=== PATIENT | female | born 1960 | race African-American/Black ===

== ENCOUNTER 2024-12-15 09:47 | Inpatient (IN) | payer BC ==
[~2024-12-15] VITALS: Ht 165.1 cm; Wt 54.1 kg
--- NOTE | 2024-12-15 13:20 | Physician Documentation ---
History of Present Illness General Chief Complaint: Abdominal Pain Stated Complaint: MULTIPLE MED COMPLAINTS Time Seen by MD: 13:20 Mode of Arrival: POV Medication Reconciliation Allergies: Coded Allergies: No Known Allergies (Unverified , 12/15/24) Physical Exam Physical Exam Vital Signs: Temperature: 97.6, Source: Temporal, Heart Rate: 62, Respiratory Rate: 18, BP: 111/65, Pulse Oximetry: 98, Weight: 54.090 Progress Results/Orders Results/Orders Medications Received in ER Medications (Trade) Dose Ordered Sig/Cristopher Route PRN Reason Start Time Stop Time Status Last Admin Dose Admin (0.9% sodium chloride (NS) 1000ml IV soln) 2,000 ml ONCE ONCE IVB 12/15/24 14:00 12/15/24 14:01 DC 12/15/24 14:43 2,000 ML (Reglan inj) 5 mg ONCE ONCE IV 12/15/24 14:00 12/15/24 14:01 DC 12/15/24 14:42 5 MG (Benadryl inj.) 25 mg ONCE ONCE IV 12/15/24 14:00 12/15/24 14:01 DC 12/15/24 14:43 25 MG Acetaminophen 100 ml @ 400 mls/hr ONCE ONCE IV 12/15/24 14:00 12/15/24 14:14 DC 12/15/24 14:43 400 MLS/HR Sodium Chloride 1,000 ml @ 100 mls/hr Q10H IV 12/15/24 15:50 12/15/24 16:33 100 MLS/HR (K-DUR tablet) 40 meq Q4H PRN PO Potassium 3.0 or less 12/15/24 15:50 12/18/24 15:49 12/15/24 16:32 40 MEQ Vital Signs 12/15/24 12/15/24 12/15/24 10:07 12:57 13:33 Temp 97.6 Pulse 62 67 Resp 18 16 B/P (MAP) 111/65 164/90 (114) Pulse Ox 98 100 O2 Flow Rate 0 Laboratory Tests Test 12/15/24 12:58 12/15/24 13:16 12/15/24 14:36 Urine Specimen Description Cln catch midstream Urine Color Yellow Urine Clarity Clear Urine pH 6.0 Urine Specific [place] 1.015 Urine Protein Trace Urine Glucose (UA) Negative Urine Ketones Negative Urine Occult Blood Negative Urine Nitrite Negative Urine Bilirubin Negative Urine Urobilinogen 0.2 Urine Leukocyte Esterase Negative Urine RBC 0-2 Urine WBC 0-4 Urine Squamous Epithelial Cells Few Urine Bacteria None seen Urine Mucus Few Urine Culture Indicated Not ind Volume Urine Centrifuged 10 ml Urine HCG, Qualitative Negative Urine Comment White Blood Count 11.4 H Red Blood Count 4.12 L Hemoglobin 11.8 L Hematocrit 36.1 Mean Corpuscular Volume 87.5 Mean Corpuscular Hemoglobin 28.7 Mean Corpuscular Hemoglobin Concent 32.8 L Red Cell Distribution Width 13.7 Platelet Count 281 Mean Platelet Volume 9.1 Neutrophils (%) (Auto) 79.7 H Lymphocytes (%) (Auto) 11.3 L Monocytes (%) (Auto) 8.8 Eosinophils (%) (Auto) 0.1 Basophils (%) (Auto) 0.1 Neutrophils # (Auto) 9.1 H Lymphocytes # (Auto) 1.3 Monocytes # (Auto) 1.0 H Eosinophils # (Auto) 0.0 Basophils # (Auto) 0.0 CBC Comment Sodium Level 138 Potassium Level 2.8 *L Chloride Level 101 Carbon Dioxide Level 25.5 Anion Gap 12 Blood Urea Nitrogen 25 H Creatinine 1.52 H Estimated GFR/1.73 m2 35 BUN/Creatinine Ratio 16.4 Glucose Level 98 Hemoglobin A1c 5.3 Lactic Acid Level 0.9 Calcium Level 9.4 Total Bilirubin 0.5 Aspartate Amino Transf (AST/SGOT) 80 H Alanine Aminotransferase (ALT/SGPT) 161 H Alkaline Phosphatase 88 Pro-B-Type Natriuretic Peptide 529 H Total Protein 9.3 H Albumin 3.5 Globulin 5.8 H Albumin/Globulin Ratio 0.6 L Lipase 15 L Chemistry Comments Procalcitonin 0.19 Departure Referrals: NO PRIMARY CARE PROVIDER (PCP) BRIA FOWLER MD Dec 15, 2024 13:20 ESTEPHANIA HOLLINGSWORTH Dec 15, 2024 17:27
[2024-12-15 13:42] LABS: MEAN PLATELET VOLUME 9.1 FL (7.4-10.4); RED CELL DISTRIBUTION WIDTH 13.7 % (11.5-14.5)
[2024-12-15 13:57] LABS: CREATININE 1.52 MG/DL (0.40-0.90); TOTAL CARBON DIOXIDE 25.5 MMOL/L (24-32); eCRCL 33 ML/MIN; eGFR 35 ML/MIN
[2024-12-15 14:02] LABS: URINE HCG NEGATIVE (NEG)
[2024-12-15 14:07] LABS: LEUKOCYTE ESTERASE ,URINE NEGATIVE (Neg); NITRITES, URINE NEGATIVE (Neg); OCCULT BLOOD,URINE NEGATIVE (Neg)
[2024-12-15 14:14] LABS: UA COLLECTION TYPE CLN CATCH MIDSTREAM
[2024-12-15 14:16] LABS: MUCUS STRANDS FEW /LPF (Neg); SQUAMOUS EPITHELIAL CELL,UR FEW /LPF (FEW)
--- NOTE | 2024-12-15 14:20 | Physician Documentation ---
History of Present Illness Chief Complaint: Abdominal Pain Stated Complaint: MULTIPLE MED COMPLAINTS Mode of Arrival: POV HPI 64 year old female presents to ER with abdominal pain for the past 2 weeks. Pain located in the RUQ, colicky, waxes and wanes, exacerbates with oral intake, as sociated with nauseal. She has poor oral intake for the past 2 days. She also reports some chills. No SOB, Chest pain or shortness of breath. Medication Reconciliation Allergies: Coded Allergies: No Known Allergies (Unverified , 12/15/24) Review of Systems All Other Systems at this time: Reviewed and Negative ROS As stated in HPI. Physical Exam Vital Signs: Temperature: 97.6, Source: Temporal, Heart Rate: 67, Respiratory Rate: 16, BP: 164/90, Pulse Oximetry: 100, Weight: 54.090 Oxygen Flow Rate: 0 General Appearance: alert EENT: PERRL/EOMI, normal ENT inspection Neck: normal inspection, full range of motion, supple Respiratory: lungs clear, rhonchi Chest: no accessory muscle use Cardiovascular: normal peripheral pulses, regular rate, rhythm, no edema, no gallop, no JVD, no murmur Gastrointestinal: normal palpation, non-tender, bowels sounds present Bladder: normal, non tender External Genitalia: No: normal, lesions present, rash, red, swelling present, blood, mass present, other Back: normal inspection, no CVA tenderness, no vertebral tenderness Extremities: normal range of motion, non-tender, normal inspection, no edema, no calf tenderness, no cyanosis, normal capillary refill Neurologic: oriented x4, records management clerk II-XII nml as tested, memory intact Psychiatric: normal mood/affect Skin: normal color, warm/dry Progress Results/Orders Reviewed/noted all lab results: Yes Results/Orders Vital Signs 12/15/24 12/15/24 12/15/24 10:07 12:57 13:33 Temp 97.6 Pulse 62 67 Resp 18 16 B/P (MAP) 111/65 164/90 (114) Pulse Ox 98 100 O2 Flow Rate 0 Laboratory Tests Test 12/15/24 12:58 12/15/24 13:16 Urine Specimen Description Cln catch midstream Urine Color Yellow Urine Clarity Clear Urine pH 6.0 Urine Specific [place] 1.015 Urine Protein Trace Urine Glucose (UA) Negative Urine Ketones Negative Urine Occult Blood Negative Urine Nitrite Negative Urine Bilirubin Negative Urine Urobilinogen 0.2 Urine Leukocyte Esterase Negative Volume Urine Centrifuged 10 ml Urine HCG, Qualitative Negative Urine Comment White Blood Count 11.4 H Red Blood Count 4.12 L Hemoglobin 11.8 L Hematocrit 36.1 Mean Corpuscular Volume 87.5 Mean Corpuscular Hemoglobin 28.7 Mean Corpuscular Hemoglobin Concent 32.8 L Red Cell Distribution Width 13.7 Platelet Count 281 Mean Platelet Volume 9.1 Neutrophils (%) (Auto) 79.7 H Lymphocytes (%) (Auto) 11.3 L Monocytes (%) (Auto) 8.8 Eosinophils (%) (Auto) 0.1 Basophils (%) (Auto) 0.1 Neutrophils # (Auto) 9.1 H Lymphocytes # (Auto) 1.3 Monocytes # (Auto) 1.0 H Eosinophils # (Auto) 0.0 Basophils # (Auto) 0.0 CBC Comment Sodium Level 138 Potassium Level 2.8 *L Chloride Level 101 Carbon Dioxide Level 25.5 Anion Gap 12 Blood Urea Nitrogen 25 H Creatinine 1.52 H Estimated GFR/1.73 m2 35 BUN/Creatinine Ratio 16.4 Glucose Level 98 Calcium Level 9.4 Total Bilirubin 0.5 Aspartate Amino Transf (AST/SGOT) 80 H Alanine Aminotransferase (ALT/SGPT) 161 H Alkaline Phosphatase 88 Total Protein 9.3 H Albumin 3.5 Globulin 5.8 H Albumin/Globulin Ratio 0.6 L Lipase 15 L Chemistry Comments EKG/XRAY/CT/US/VASC/MRI CT : Interpreted By: radiologist CT: abdomen/pelvis With Contrast?: Yes Impression Indication: abd pain Technique: CT axial images of the abdomen and pelvis are obtained without contrast. Coronal and sagittal reformats were obtained. Radiation Dose Information: CTDI volume is 6. mGy. Dose-length product is 302 mGy*cm Comparison: None FINDINGS: There is limited interpretation of the abdomen and pelvis without administration of intravenous contrast. Lung bases demonstrate right lower lobe airspace consolidation. Adrenal glands, spleen, pancreas unremarkable in shape. 2.4 cm left hepatic lobe cyst. No CT evidence for cholelithiasis. The bilateral kidneys demonstrate no hydronephrosis / nephrolithiasis. Stomach is partially distended. Small bowel loops are normal in caliber. Moderate volume stool in the colon. Normal appendix. Atherosclerotic disease. Bladder partially distended. Trace free pelvic fluid. No inguinal lymphadenopathy. Bgdx-fl-mfrwnnzs bilateral sacroiliac degenerative joint disease. Zizh-cd-grxpucvu thoracolumbar degenerative disc disease. Thoracolumbar levocurvature. IMPRESSION: Limited evaluation without contrast. Right lower lobe pulmonary airspace consolidation/developing pneumonia. Follow- up to resolution. Moderate volume stool within the colon. No hydronephrosis. Trace free pelvic fluid. Other findings as described Reviewed by myself. Ultrasound : Interpreted By: radiologist Ultrasound of: abdomen Impression Procedure: US ULTRASOUND OF ABDOMEN AND [facility] Study Date and Requested Time: 12/15/2024 02:18 PM History: ABD PAIN Comparison: CT CT ABDOMEN PELVIS on DOS: 12/15/24 Technique: Multiple high resolution doss-scale images obtained of the right upper quadrant of the abdomen with color Doppler for evaluation of blood flow and vascularity as indicated. Findings: Liver normal in size, measuring 13 cm in length, with homogenous echotexture and normal contours. No evidence of focal hepatic lesions, intrahepatic or extrahepatic ductal dilatation. Common bile duct measures 0.4 cm in diameter. Gallbladder unremarkable with no evidence of abnormal wall thickening, gallstones, biliary sludge, or pericholecystic fluid. Negative sonographic El's sign. Pancreas is unremarkable. Right kidney measures 8.7 cm in length, with normal contours, and cortical thickness. No evidence of hydronephrosis, calculi, cystic or solid renal lesions. Increased cortical echogenicity of the right kidney. Partially visualized inferior vena cava unremarkable. Impression: Mild atrophy of the right kidney with increased cortical echogenicity which may be from medical renal disease. Otherwise, Unremarkable sonographic study of the right upper quadrant of the abdomen. Reviewed by myself Medical Decision Making Findings 64 year old female presents to ER with abdominal pain for the past 2 weeks. Pain located in the RUQ, colicky, waxes and wanes, exacerbates with oral intake, associated with nauseal. She has poor oral intake for the past 2 days. Likely gall stone colic, LFTs elevated. Modest leukocytosis, likely reactive, appears dehydrated. US abdomen with unremarkable. CT chest shows right lower lobe consolidations. Most likely CAP. Started on IV Antibiotics i.e. Rocephen and Azithromycin. She is also dehydrated with MADHU. IVF given. Paged hospitalist for admission. Departure Impression: Primary Impression: Calculus of gallbladder with obstruction Additional Impressions: Abdominal pain Acute gastritis Acute cholecystitis Cholelithiasis without obstruction Pneumonia Referrals: NO PRIMARY CARE PROVIDER (PCP) Signature Scribe Signature: Scribed for Ohlfs,Tani Whatley MD by Estephania Fletcher . 12/15/24 15:39 Attestation: - AARON BROWER, RES Dec 15, 2024 14:20 ESTEPHANIA HOLLINGSWORTH Dec 15, 2024 15:41
[2024-12-15] MEDS: metoclopramide 5 mg/ml inj IV ONE (14:42)
[2024-12-15] MEDS: acetaminophen 1,000mg/100ml IV 100 ML IV ONE (14:43)
[2024-12-15] MEDS: normal saline 1000ML IV soln IVB ONE (14:43)
--- NOTE | 2024-12-15 15:36 | RADIOLOGY REPORT ---
Indication: abd pain Technique: CT axial images of the abdomen and pelvis are obtained without contrast. Coronal and sagit ziyad reformats were obtained. Radiation Dose Information: CTDI volume is 6. mGy. Dose-length product is 302 mGy*cm Comparison: None FINDINGS: There is limited interpretation of the abdomen and pelvis without administration of intravenous contr ast. Lung bases demonstrate right lower lobe airspace consolidation. Adrenal glands, spleen, pancreas unremarkable in shape. 2.4 cm left hepatic lobe cyst. No CT evidenc e for cholelithiasis. The bilateral kidneys demonstrate no hydronephrosis / nephrolithiasis. Stomach is partially distended. Small bowel loops are normal in caliber. Moderate volume stool in the colon. Normal appendix. Atherosclerotic disease. Bladder partially distended. Trace free pelvic fluid. No inguinal lymphaden opathy. Ssse-qn-bewwoldr bilateral sacroiliac degenerative joint disease. Bzos-rb-mixlihyh thoracolumbar dege nerative disc disease. Thoracolumbar levocurvature. IMPRESSION: Limited evaluation without contrast. Right lower lobe pulmonary airspace consolidation/developing pneumonia. Follow-up to resolution. Moderate volume stool within the colon. No hydronephrosis. Trace free pelvic fluid. Other findings as described
[2024-12-15] MEDS ORDERED: HYDROcodone/acetaminophen 5mg/325mg tablet PO PRN (15:50)
[2024-12-15] MEDS ORDERED: mag hydrox/Alum hydrox/simeth 30ml oral suspension PO PRN (15:50)
[2024-12-15] MEDS ORDERED: magnesium sulf-water 4G/100mL 100 ML IV PRN (15:50)
[2024-12-15] MEDS ORDERED: HYDROcodone/acetaminophen 10/325mg tab PO PRN (15:50)
[2024-12-15] MEDS ORDERED: magnesium sulf-water 2g/50mL 50 ML IV PRN (15:50)
[2024-12-15] MEDS ORDERED: potassium Cl 40MEQ/1/2NS 520ml 520 ML IV PRN (15:50)
--- NOTE | 2024-12-15 16:00 | RADIOLOGY REPORT ---
Procedure: US ULTRASOUND OF [facility] Study Date and Requested Time: 12/15/2024 02:18 PM History: ABD PAIN Comparison: CT CT ABDOMEN PELVIS on DOS: 12/15/24 Technique: Multiple high resolution doss-scale images obtained of the right upper quadrant of the abd omen with color Doppler for evaluation of blood flow and vascularity as indicated. Findings: Liver normal in size, measuring 13 cm in length, with homogenous echotexture and normal contours. No evidence of focal hepatic lesions, intrahepatic or extrahepatic ductal dilatation. Common bile duct m easures 0.4 cm in diameter. Gallbladder unremarkable with no evidence of abnormal wall thickening, gallstones, biliary sludge, or pericholecystic fluid. Negative sonographic El's sign. Pancreas is unremarkable. Right kidney measures 8.7 cm in length, with normal contours, and cortical thickness. No evidence of hydronephrosis, calculi, cystic or solid renal lesions. Increased cortical echogenicity of the right kidney. Partially visualized inferior vena cava unremarkable. Impression: Mild atrophy of the right kidney with increased cortical echogenicity which may be from medical renal disease. Otherwise, Unremarkable sonographic study of the right upper quadrant of the abdomen.
--- NOTE | 2024-12-15 16:21 | HISTORY AND PHYSICAL-Residence ---
History & Physical Providers to CC Resident Creating Document: BRIANA CERVANTES RES ~ History of Present Illness Reason for Admit\Complaint: PNA History of Present Illness 64-year-old female with history of hypertension, CKD, depression presented to the ED with chief complaints of abdominal pain and cough for the past two weeks. Luis Miguel present at bedside. Generalized cramping type abdominal pain in the middle and the lower quadrants. She states that she had associated fever, chills, dry heaves, headaches and body aches. She also complains of persistent nausea and vomiting. Has been having bilious emesis since the last couple of days. No diarrhea. Her last bowel movement was yesterday. Denies hematemesis or melena. Has never had similar episodes in the past, no travel history. She was taking acetaminophen p.r.n. for the pain. She also used ibuprofen and Motrin once in the past. Denies any aggravating or relieving factors. Has not had EGD or colonoscopy in the past. Follows up with Dr. Dudley PCP. Denies smoking or drinking alcohol. No allergic history. Blood pressure and depression medications. 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 Discussed advanced care directives and she wishes to be a full code. Allergies: Coded Allergies: No Known Allergies (Unverified , 12/15/24) Past Medical History Past Medical History Hypertension Depression Past Surgical History Surgical History Comment Procedure: Biopsies of the breast x2 (nonmalignant) ROS All Other Systems: Reviewed and Negative ROS Constitutional: Fever chills, no dizziness,weight gain or loss Eyes: No pain, erythema, discharge, blurring of vision ENT: No sore throat, epistaxis, tinnitus Cardiovascular: No chest pain, chest pressure, chest discomfort, palpitations, syncope, lower extremity edema, paroxysmal nocturnal dyspnea Respiratory: Cough present. No shortness a breath or hemoptysis Gastrointestinal: Decreased appetite, abdominal pain, nausea and vomiting. Genitourinary: No frequency, urgency, nocturia, hematuria or dysuria Musculoskeletal: Generalized body ache Integumentary: No change in skin, hair, nails. No swelling, bruising, abrasions Neurologic: Headache, no neck pain, numbness or tingling of the extremities, weakness Psychiatric: No delusions, depression, loss of interest in normal activity or change in sleep pattern, hallucinations, suicidal ideations Hematological: No bleeding, petechiae, bruising Allergies: No asthma or urticaria Exam Vitals: Vital Signs Date Time Temp Pulse Resp B/P (MAP) Pulse Ox O2 Delivery O2 Flow Rate FiO2 12/15/24 13:33 67 16 164/90 (114) 100 0 12/15/24 10:07 97.6 General: General Appearance: Well developed, well nourished. Awake, alert and oriented x4, resting comfortably in bed, in no acute distress. HEENT: Atraumatic, normocephalic, JENNIFER, EOMI. Normal oropharynx, moist oral dry. Neck: Trachea midline. Supple, normal ROM. No JVD, bruit, lymphadenopathy or masses, or other lesions. Respiratory: Chest wall is symmetric and without deformity. No signs of respiratory distress. Equal breath sounds bilaterally. No wheeze, rub, Rales or crackles. Cardiac: RRR, no murmur, rub or gallop. Normal S1 and S2. GI: Abdominal tenderness in the middle in the lower quadrants. Abdomen soft, normal bowel sounds x4. No guarding or rigidity Extremities: Normal ROM, no swelling, non-tender. Distal pulses full symmetrical, no clubbing, cyanosis, edema, capillary refill less than 2 seconds. Skin: Intact, dry, warm, no rashes or petechia. Neuro: Speech is clear, alert and oriented x4. No sensory or motor deficit, DTRs normal. Cranial nerves II to XII intact. Psych: Normal affect, good eye contact, no apparent hallucination, normal speech. Diagnostic Data Last Recorded Lab Results: 12/15/24 1316 12/15/24 1316 Advance Care Planning Advanced Care plannin - 30 Minutes Additional Plan 64-year-old female with history of hypertension, CKD, depression presented to the ED with chief complaints of abdominal pain and cough for the past two weeks Community-acquired pneumonia POA Saturating well on room air Mild elevated WBCs 11.4, procalcitonin and lactic acid within normal limits CT abdomen pelvis findings positive for right lower lobe consolidation/pneumonia Follow up with CXR, CT chest Antibiotics IV ceftriaxone 1 g daily and Zithromax x3 Prednisolone 10 mg p.o. daily Breathing treatments p.r.n. Follow up with cultures Abdominal pain, under evaluation Elevated liver enzymes Persistent Nausea vomiting x2 weeks, CT Abdomen pelvis: 2.4 cm left hepatic lobe cyst. No evidence of cholelithiasis. Ultrasound of the abdomen: Liver normal in size with homogeneous echotexture and normal contour. Common bile duct 0.4 cm in diameter. Gallbladder unremarkable. Mild atrophy of the right kidney with increased cortical echogenicity. Monitor LFTs, MADHU on CKD stage III, likely secondary to vasomotor nephropathy Hypokalemia, replacement per protocol Hypertension Depression Awaiting med rec Code Status: Full code DVT prophylaxis: Heparin Analgesia/sedation: Morphine/Esmond Line/tube: PIV GI prophylaxis: Protonix Prognosis: Guarded Disposition: Continue medical management. Briana Cervantes MD. IM Resident PGY-3 Date of Service: Dec 15, 2024 Billing Provider: EVELYNE CHISHOLM MD, ELIZABETH, RES Dec 15, 2024 16:21
[2024-12-15 16:27] LABS: PRO BRAIN NATRIURETIC PEPTIDE 529 PG/ML (0-125)
[2024-12-15] MEDS: potassium Cl 20 mEq SR tablet PO PRN (16:32)
[2024-12-15] MEDS: guaiFENesin ER 600mg tablet PO SCH (16:32)
[2024-12-15] MEDS: pantoprazole 40mg Tablet.DR PO SCH (16:32)
[2024-12-15] MEDS: normal saline 1000ml 1,000 ML IV SCH (16:33)
[2024-12-15] MEDS: CefTRIAXone/D5W-Rocephin 1gm 50 ML IV SCH (16:33)
[2024-12-15] MEDS: azithromycin/NS 500mg/250ml 250 ML IV SCH (17:11)
[2024-12-15] MEDS ORDERED: albuterol 2.5 MG/3 ML nebule NEB PRN (17:20)
[2024-12-15] MEDS ORDERED: ipratropium/albuterol 3ml nebule NEB PRN (17:20)
--- NOTE | 2024-12-15 17:39 | RADIOLOGY REPORT ---
Procedure: CT CT CHEST [place] Study Date and Requested Time: 12/15/2024 04:53 P M History: PNA Comparison: None Dose: CTDI: 7.06 mGy DLP: 238.65 mGycm Technique: Multiplanar images obtained through the chest without contrast. Findings: The thyroid gland is unremarkable. Partially visualized heart is unremarkable. No evidence of aortic aneurysm. The pulmonary trunk is no rmal in size. No significant mediastinal lymphadenopathy. Biapical atelectasis/scarring. The right middle lobe is not definitely visualized. Patchy ground-gla ss opacities of bilateral lower lobes. No pneumothorax or pleural effusion. Right lower lobe linear a telectasis. The soft tissues are unremarkable. No evidence of acute osseous abnormalities. Moderate levoconvex cu rvature of the upper thoracic spine with moderate dextroconvex curvature of the lower thoracic. 1.1 cm partially visualized right renal cyst. Mild wall thickening of the partially visualized stomac h. Hyperdense material within the distal esophagus and stomach which most likely represents contrast versus Ingested material. 1.3 cm hepatic cyst. Impression: Patchy ground-glass Opacities of bilateral lungs which may represent atypical pneumonia.
[2024-12-15 17:51] VITALS: PULSE 66; RESP 12; O2SAT 100
--- NOTE | 2024-12-15 18:10 | RADIOLOGY REPORT ---
CHEST RADIOGRAPH Indication: SOB Technique: DI CHEST,SINGLE VIEW Comparison: None FINDINGS: The cardiac silhouette is unremarkable. The lungs demonstrate right infrahilar/ lower lobe airspace c onsolidation. The pulmonary vasculature is mildly prominent. There is no pleural effusion. There is n o pneumothorax. Thoracolumbar dextrocurvature. IMPRESSION: As above. Follow-up to resolution.
[2024-12-15] MEDS: K and/or MAG REPLACEMENT MC SCH (18:33)
--- NOTE | 2024-12-15 19:00 | CARDIOLOGY REPORT ---
APPROVED REPORT EXAM: Comprehensive 2D, Doppler, and color-flow Echocardiogram. Patient Location: ER RM 6 Blood Pressure: 164/90 mmHg Heart Rate: 63 bpm Rhythm: Sinus Indications Shortness of Breath NO DIRECTOR WRITING NO Previous ECHO 2D Dimensions LA Diam3.3 cm IVSd 1.0 (0.7-1.1cm) LVDd 4.5 cm PWd 0.9 (0.7-1.1cm) IVSs 1.1 (0.8-1.2cm) LVDs 2.9 (2.5-4.0cm) PWs 1.2 (0.8-1.2cm) LVOT Diameter 1.84 (1.8-2.4cm) LVEF(%) 64.1 (>50%) Ao Asc Diam.2.68 cm IVC 11.51 mmFS (%) 34.8 % SV 58.4 ml CO 3.8 L/min M-Mode Dimensions Left Atrium(MM) 3.69 (2.5-4.0cm) Aortic Root 2.43 (2.2-3.7cm) Aortic Cusp Exc 1.46 (1.5-2.0cm) MV EPSS 0.6 (<0.5cm) Aortic Valve AoV Peak Hood. 162.1 cm/s AoV VTI 31.6 cm AO Peak GR. 10.5 mmHg AO Mean GR. 5 mmHg LVOT VTI 24.25 cm LVOT Peak Hood. 118.5 cm/s BONNY(VTI)/BSA 2.05 cm2/m2 BONNY (VTI) 2.05 cm2 Mitral Valve MV E Velocity 103.4 cm/s MV Peak Gr. 5 mmHg MV DECEL TIME 128 ms MV A Velocity 72.3 cm/s MV PHT 76 ms E/A Ratio 1.4 MVA (PHT) 2.89 cm2 MV LEan975.1 cm/s TDI Lateral E' P. V14.10 cm/s E/Lateral E' 7.3 Tricuspid Valve TR P. Velocity 255 cm/s RAP ESTIMATE 10 mmHg TR Peak Gr. 26 mmHg RVSP 36 mmHg LEFT VENTRICLE Normal LV size and wall thickness. Overall systolic function is normal. Overall LVEF is 65-70%. RIGHT VENTRICLE RV is normal size and function. Estimated PA systolic pressure of 36 mm of mercury ATRIA The left atrium size is normal. AORTIC VALVE Trileaflet AV appears mildly sclerotic without stenosis. No insufficiency. MITRAL VALVE Mild mitral annular calcification without stenosis. Mild regurgitation. TRICUSPID VALVE The tricuspid valve is normal in structure with mild regurgitation. PULMONIC VALVE The pulmonary valve is normal in structure with physiologic insufficiency. GREAT VESSELS The aortic root is normal in size. The ascending aorta is normal in size. The IVC is normal in size a nd collapses >50% with inspiration. PERICARDIUM Normal pericardium. No effusion. Other Information Study Quality: Adequate Conclusion Overall LVEF is 65-70%. Normal LV size and wall thickness. Overall systolic function is normal. RV is normal size and function. Estimated PA systolic pressure of 36 mm of mercury Trileaflet AV appears mildly sclerotic without stenosis. No insufficiency. Mild mitral annular calcification without stenosis. Mild regurgitation. The tricuspid valve is normal in structure with mild regurgitation. The pulmonary valve is normal in structure with physiologic insufficiency. Normal pericardium. No effusion.
[2024-12-15] MEDS: heparin, porcine 5000 units/ml vial SQ SCH (20:36)
[2024-12-15 23:07] VITALS: PULSE 72; RESP 16; O2SAT 100
[2024-12-16] VITALS (9 sets, daily range): BP systolic 117–152; BP diastolic 75–94; PULSE 68–79; RESP 16–22; TEMP 97.6–98.8; O2SAT 97–100
[2024-12-16] MEDS ORDERED: SERT-433 PO (02:25)
[2024-12-16] MEDS ORDERED: AMLO10TA13 PO (02:25)
[2024-12-16] MEDS ORDERED: CLON0.1T2 PO (02:25)
[2024-12-16] MEDS ORDERED: ATOR10TA70 PO (02:25)
[2024-12-16] MEDS ORDERED: FLUO40CA (02:25)
[2024-12-16] MEDS ORDERED: TRAZ-251 PO (02:25)
[2024-12-16 02:33] LABS: MEAN PLATELET VOLUME 8.7 FL (7.4-10.4); RED CELL DISTRIBUTION WIDTH 13.7 % (11.5-14.5)
[2024-12-16 02:45] LABS: INR 1.1 INR
[2024-12-16 02:49] LABS: CREATININE 1.24 MG/DL (0.40-0.90); PHOSPHORUS 1.6 MG/DL (2.3-4.5); TOTAL CARBON DIOXIDE 23.3 MMOL/L (24-32); eCRCL 40 ML/MIN; eGFR 53 ML/MIN
[2024-12-16] MEDS: potassium Cl 20 mEq SR tablet PO PRN (11:00)
--- NOTE | 2024-12-16 11:15 | RADIOLOGY REPORT ---
RENAL ULTRASOUND History: atrophic kidney Comparison: 12/15/2024 Technique: Multiple real-time sonographic images of the kidney and bladder were obtained in conjuncti on with Doppler imaging. Findings: The right kidney measures 7.9 cm and demonstrates mild pelviectasis. Echogenic appearance. No nephro lithiasis. The left kidney measures 11 cm and demonstrates mild pelviectasis. There is perinephric fluid collec tion, or shadowing stone. Urinary bladder: Prevoid urinary bladder volume is 317 mL. Right ureteral jet nonvisualized. Impression: Small right kidney which is echogenic consistent with medical renal disease. Mild bilateral renal pelviectasis. Right ureteral jet not visualized.
--- NOTE | 2024-12-16 18:03 | PROGRESS NOTE- Residence ---
Progress Note - Resident Providers to CC Resident Creating Document: BRIANA CERVANTES RES ~ Antibiotic Timeout Antibiotic Ordered?: Yes Subjective Patient seen and examined at bedside. He is doing much better today and she states that she is feeling better. Denies headaches, chest pain, dizziness, shortness of breath or abdominal pain. No other concerns or complaints. Objective Vital Signs Date Time Temp Pulse Resp B/P (MAP) Pulse Ox O2 Delivery O2 Flow Rate FiO2 12/16/24 10:26 98.8 79 16 117/78 (91) 99 Room Air 12/16/24 08:40 0.0 21 Result Diagram: 12/16/24 0221 12/16/24 0221 General Appearance: Well developed, well nourished. Awake, alert and oriented x4, resting comfortably in bed, in no acute distress. HEENT: Atraumatic, normocephalic, JENNIFER, EOMI. Normal oropharynx, moist oral dry. Neck: Trachea midline. Supple, normal ROM. No JVD, bruit, lymphadenopathy or masses, or other lesions. Respiratory: Chest wall is symmetric and without deformity. No signs of respiratory distress. Equal breath sounds bilaterally. No wheeze, rub, Rales or crackles. Cardiac: RRR, no murmur, rub or gallop. Normal S1 and S2. GI: Abdominal tenderness in the middle in the lower quadrants. Abdomen soft, normal bowel sounds x4. No guarding or rigidity Extremities: Normal ROM, no swelling, non-tender. Distal pulses full symmetrical, no clubbing, cyanosis, edema, capillary refill less than 2 seconds. Skin: Intact, dry, warm, no rashes or petechia. Neuro: Speech is clear, alert and oriented x4. No sensory or motor deficit, DTRs normal. Cranial nerves II to XII intact. Psych: Normal affect, good eye contact, no apparent hallucination, normal speech. Coagulation Studies Laboratory Tests Test 12/16/24 02:21 Prothrombin Time 10.9 SECONDS (9.0-12.0) INR International Normalized Ratio 1.1 INR Coagulation Comments Assessment Assessment 64-year-old female with history of hypertension, CKD, depression presented to the ED with chief complaints of abdominal pain and cough for the past two weeks Plan Plan Community-acquired pneumonia POA Saturating well on room air Mild elevated WBCs 11.4, procalcitonin and lactic acid within normal limits CT abdomen pelvis findings positive for right lower lobe consolidation/pneumonia Follow up with CXR, CT chest Antibiotics IV ceftriaxone 1 g daily and Zithromax x3 Prednisolone 10 mg p.o. daily Breathing treatments p.r.n. Follow up with cultures 12/16/2024 CT chest: Ground-glass opacities representing atypical pneumonia. Continue IV antibiotics ceftriaxone and Zithromax and breathing treatments Incentive spirometer q.1h Prednisolone 40 p.o. daily Abdominal pain, under evaluation-resolved Elevated liver enzymes likely secondary to statin use Persistent Nausea vomiting x2 weeks, CT Abdomen pelvis: 2.4 cm left hepatic lobe cyst. No evidence of cholelithiasis. Ultrasound of the abdomen: Liver normal in size with homogeneous echotexture and normal contour. Common bile duct 0.4 cm in diameter. Gallbladder unremarkable. Mild atrophy of the right kidney with increased cortical echogenicity. Monitor LFTs, 12/16/2024 Ultrasound of the abdomen liver size is normal 13 cm in length with homogeneous echotexture normal contour. No evidence of lesions. CBD is 0.4 cm Patient stated that she has been using atorvastatin for hyperlipidemia, her liver enzymes could be elevated secondary to statin use DC statin, follow up with lipid panel MADHU on CKD stage III, likely secondary to vasomotor nephropathy Hypokalemia, replacement per protocol Renal ultrasound small right kidney with increased cortical echogenicity consistent with renal disease, no nephrolithiasis Replace per potassium per protocol, patient is complaining of "pain in her kidney" with over potassium replacement, can try IV potassium Hypertension, continue amlodipine Depression Awaiting med rec Home meds: DC statin, continue amlodipine for blood pressure Code Status: Full code DVT prophylaxis: Heparin Analgesia/sedation: Morphine/[place]/tube: PIV GI prophylaxis: Protonix Prognosis: Guarded Disposition: Continue medical management. Briana Cervantes MD. IM Resident PGY-3 Date of Service: Dec 16, 2024 Billing Provider: EVELYNE CHISHOLM MD, ELIZABETH, RES Dec 16, 2024 18:03
[2024-12-16 18:53] LABS: CHOL/HDL RATIO 3.0 (0.00-4.99); LDL CHOLESTEROL 76 MG/DL (50-100)
[2024-12-17 04:54] LABS: MEAN PLATELET VOLUME 8.7 FL (7.4-10.4); RED CELL DISTRIBUTION WIDTH 13.7 % (11.5-14.5)
[2024-12-17 05:26] LABS: CREATININE 1.11 MG/DL (0.40-0.90); PHOSPHORUS 1.8 MG/DL (2.3-4.5); TOTAL CARBON DIOXIDE 23.5 MMOL/L (24-32); eCRCL 45 ML/MIN; eGFR 60 ML/MIN
[2024-12-17 06:00] VITALS: BP 132/78; PULSE 74; RESP 16; TEMP 97.8; O2SAT 100
[2024-12-17] MEDS: ondansetron/PF 4mg/2ml inj IV PRN (08:53)
[2024-12-17 10:00] VITALS: BP 162/93; PULSE 69; RESP 15; RESP 16; TEMP 98.4; O2SAT 100
[2024-12-17 10:05] VITALS: BP_SYST 132
[2024-12-17] MEDS: magnesium Cl slow-release 64mg tablet PO PRN (10:08)
[2024-12-17 10:59] VITALS: PULSE 70; RESP 14; O2SAT 99
[2024-12-17] MEDS ORDERED: PANT40TA54 PO (12:28)
[2024-12-17] MEDS ORDERED: AZIT500T PO (12:28)
[2024-12-17] MEDS ORDERED: BUDE10.27 PO (12:28)
[2024-12-17] MEDS ORDERED: ALBU8HFA PO (12:28)
[2024-12-17] MEDS ORDERED: LACT1CAP26 PO (12:28)
[2024-12-17] MEDS ORDERED: CEFD300C3 PO (12:28)
[2024-12-17] MEDS ORDERED: PRED10TA PO (12:28)
[2024-12-17] MEDS ORDERED: GUAI600T45 PO (12:28)
[2024-12-17 14:24] LABS: CREATININE 1.40 MG/DL (0.40-0.90); TOTAL CARBON DIOXIDE 24.5 MMOL/L (24-32); eCRCL 36 ML/MIN; eGFR 46 ML/MIN
[2024-12-17] MEDS ORDERED: NEUPHOSK PO (15:05)
[2024-12-17] MEDS ORDERED: MAGN500C4 PO (15:05)
[2024-12-17] MEDS ORDERED: POTA-207 PO (15:05)
[2024-12-17 15:29] LABS: PHOSPHORUS 1.5 MG/DL (2.3-4.5)
[2024-12-17] MEDS ORDERED: ONDA-103 PO (15:41)
--- NOTE | 2024-12-17 17:51 | DISCHARGE SUMMARY-Residence ---
Discharge Summary Providers to CC Resident Creating Document: AMISH CERVANTES RES ~ Discharge Summary Admission Diagnosis: PNA, ABD PAIN Hospital Course DATE OF ADMISSION: 12/15/2024 DATE OF DISCHARGE: 12/17/2024 Hospital course same as mentioned discharge summary. Discharge Diagnosis\Comment: Community-acquired pneumonia, antibiotics covering for Gram-positive and negative Abdominal pain -resolved Elevated liver enzymes likely secondary to statin use MADHU on CKD stage III secondary to vasomotor nephropathy Hypokalemia-resolved Hypertension Depression Operations\Procedures: None Consultants: None Complications: None Condition on DC: Stable New Medications: albuterol inhaler (Pro-Air Inhaler) 8.5 Gm Inhaler 1-2 PUFFS PO Q2H PRN for shortness of breath, #1 INH Azithromycin (Zithromax) 500 Mg Tablet 1 TAB PO DAILY for 5 Days, #5 TAB Budesonide/Formoterol Fumarate (Budesonide-Formoterol 80-4.5) 80 Mcg-4.5 Mcg/Actuation Hfa.aer.ad 2 PUFFS PO Q12H for 30 Days, #10.2 GM 0 Refills Cefdinir* (Cefdinir*) 300 Mg Capsule 1 CAP PO Q12H for 5 Days, #10 CAP Lactobacillus Rhamnosus (Culturelle) 10 Billion Cell Capsule 1 CAP PO DAILY for 30 Days, #30 CAP 0 Refills Magnesium Oxide (Magnesium) 500 Mg Capsule 500 MG PO BID for 5 Days, #10 CAP Ondansetron HCl (Ondansetron HCl) 4 Mg Tablet 1 TAB PO Q6H PRN for nausea/vomiting for 3 Days, #10 TAB 0 Refills Phosphorus #1* (Neutra-Phos K*) 250 Mg Tablet 1 TAB PO BID for 3 Days, #6 TAB Potassium Chloride* (K-Dur*) 20 Meq Tab.prt.sr 1 TAB PO BID for 5 Days, #10 TAB Guaifenesin (Mucinex) 600 Mg Tablet.sa 600 MG PO Q12H, #14 TAB.SR Pantoprazole Sodium (Pantoprazole Sodium) 40 Mg Tablet.dr 40 MG PO BKF, #14 TAB.SR Prednisone (Prednisone) 10 Mg Tablet 40 MG PO QAM@0830 for 10 Days, #10 TAB Continued Medications: Amlodipine Besylate (Amlodipine Besylate) 10 Mg Tablet 1 TAB PO DAILY Clonidine HCl (Clonidine HCl) 0.1 Mg Tablet 1 TAB PO DAILY Fluoxetine Hcl (Fluoxetine Hcl) 40 Mg Capsule Sertraline HCl (Sertraline HCl) 50 Mg Tablet 1 TAB PO DAILY Trazodone HCl (Trazodone HCl) 50 Mg Tablet 1 TAB PO HS Discontinued Medications: Atorvastatin Calcium (Atorvastatin Calcium) 10 Mg Tablet 1 TAB PO DAILY Discharge Summary: As per HPI: 64-year-old female with history of hypertension, CKD, depression presented to the ED with chief complaints of abdominal pain and cough for the past two weeks. Luis Miguel present at bedside. Generalized cramping type abdominal pain in the middle and the lower quadrants. She states that she had associated fever, chills, dry heaves, headaches and body aches. She also complains of persistent nausea and vomiting. Has been having bilious emesis since the last couple of days. No diarrhea. Her last bowel movement was yesterday. Denies hematemesis or melena. Has never had similar episodes in the past, no travel history. She was taking acetaminophen p.r.n. for the pain. She also used ibuprofen and Motrin once in the past. Denies any aggravating or re lieving factors. Has not had EGD or colonoscopy in the past. Follows up with Dr. Dudley PCP. Denies smoking or drinking alcohol. No allergic history. Blood pressure and depression medications. 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 Discussed advanced care directives and she wishes to be a full code. Hospital course: On further evaluation she was saturating well on room air. She had mildly elevated WBCs 11.4. Procalcitonin and lactic acid were within no rmal limits. Started on IV antibiotics ceftriaxone and Zithromax. Also started steroids prednisolone 40 p.o. daily. Breathing treatments p.r.n.. CT chest: Ground-glass opacities representing atypical pneumonia. Incentive spirometer was also given q.1 hour. She had elevated LFTs CT abdomen pelvis showed a 2.4 cm left hepatic lobe cysts no evidence of cholelithiasis. Ultrasound of the abdomen was done which shows the liver is normal in size and with a homogeneous echotexture and normal contour. CBD 0.4 cm in diameter. Gallbladder unremarkable. Mild atrophy of the right kidney with increased cortical echogenicity. She mentioned that she has been taking atorvastatin for hyperlipidemia, discussed with her that her liver enzymes could be elevated secondary to the statin use, recommended to stop statin and repeat lipid panel and follow up with primary care provider. She had MADHU on CKD likely secondary to vasomotor nephropathy and also had hypokalemia hypophosphatemia and hypomagnesemia, electrolytes were replaced per protocol. She was adequately hydrated creatinine improved. Home medications amlodipine was continued for hypotension. Requested immigration case worker Trinidad to give her referral to get an appt at [facility] as she does not have a primary care provider. Her hospital course is uncomplicated she is hemodynamically stable on the day of discharge and her physical exam is as follows: General Appearance: Well developed, well nourished. Awake, alert and oriented x4, resting comfortably in bed, in no acute distress. HEENT: Atraumatic, normocephalic, JENNIFER, EOMI. Normal oropharynx, moist oral dry. Neck: Trachea midline. Supple, normal ROM. No JVD, bruit, lymphadenopathy or masses, or other lesions. Respiratory: Chest wall is symmetric and without deformity. No signs of respiratory distress. Equal breath sounds bilaterally. No wheeze, rub, Rales or crackles. Cardiac: RRR, no murmur, rub or gallop. Normal S1 and S2. GI: Abdominal tenderness in the middle in the lower quadrants. Abdomen soft, normal bowel sounds x4. No guarding or rigidity Extremities: Normal ROM, no swelling, non-tender. Distal pulses full symmetrical, no clubbing, cyanosis, edema, capillary refill less than 2 seconds. Skin: Intact, dry, warm, no rashes or petechia. Neuro: Speech is clear, alert and oriented x4. No sensory or motor deficit, DTRs normal. Cranial nerves II to XII intact. Psych: Normal affect, good eye contact, no apparent hallucination, normal speech. Discharge medications can be found above. Patient is being discharged with the following advice: FOLLOW UP WITH PCP IN TWO WEEKS. WE HAVE GIVEN YOU A PACKET TO SET UP A PCP AT [facility], CALL AND MAKE AN APPOINTMENT TO SEE THEM. USE ANTIBIOTICS CEFDINIR AND ZITHROMAX FOR FIVE MORE DAYS AND THEN STOP. USE STEROIDS PREDNISOLONE 40 P.O. DAILY FOR 10 DAYS AND THEN STOP. WHILE YOUR ON THE ANTIBIOTICS FOR THE NEXT FIVE DAYS DO NOT TAKE TRAZODONE, FLUOXETINE OR SERTRALINE THESE MEDICATIONS CAN INTERACT, CAN RESUME ONCE YOU ARE DONE WITH THE COURSE OF ANTIBIOTIC. USE INCENTIVE SPIROMETER Q.1 HOUR. USE BREATHING TREATMENTS P.R.N.. I HAVE STOPPED ATORVASTATIN YOU HAVE HAVE ELEVATED LIVER ENZYMES YOUR LIVER ULTRASOUND LOOKS NORMAL. SO THE ENZYMES COULD BE ELEVATED SECONDARY TO THE MEDICATION YOUR LDL IS 76. FOLLOW UP WITH PCP AND TRY A DIFFERENT CLASS OF MEDICATION FOR CHOLESTEROL. IF CONDITION WORSENS CALL 911 OR GO TO THE NEAREST ER IMMEDIATELY. *Problems/Diagnosis: (1) Pneumonia Status: Acute Total Time Spent on D/C: > 30 Minutes Date of Service: Dec 17, 2024 Billing Provider: EVELYNE CHISHOLM MD, ELIZABETH, RES Dec 17, 2024 17:51
== END 2024-12-17 17:23 | disposition home or self-care (01) | DRG 444 ==
LOC: ER 09:48 → ED HOLD 15:58 → SUR 3N 12-16 03:25
PROVIDERS: ADMIT Family Medicine; ATTEND Family Medicine
DX: K80.00 Calculus of gallbladder with acute cholecystitis without obstruction (principal); J18.9 Pneumonia, unspecified organism; N17.0 Acute kidney failure with tubular necrosis; K29.00 Acute gastritis without bleeding; Z20.822 Contact with and (suspected) exposure to COVID-19; I12.9 Hypertensive chronic kidney disease with stage 1 through stage 4 chronic kidney disease, or unspecified chronic kidney disease; N18.30 Chronic kidney disease, stage 3 unspecified; F32.A Depression, unspecified; E87.6 Hypokalemia; E83.39 Other disorders of phosphorus metabolism; E83.42 Hypomagnesemia; I95.9 Hypotension, unspecified
CPT/HCPCS: 36415; 71045; 71250; 74176; 76700; 76770; 80048; 80053; 80061; 81001; 81025; 83036; 83605; 83690; 83735; 83880; 84100; 84145; 85025; 85610; 87040; 87081; 87811; 93306; 94760; 96361; 96365; 96375; 99285; G0378; J0131; J0456; J0696; J1200; J1644; J2270; J2405; J2765; J7030; J7512